=== PATIENT | female | born 1945 | race Hispanic/Latino ===

== ENCOUNTER 2018-06-11 14:38 | Day surgery (SDC) | payer MEDICARE ==
[2018-06-11] MEDS ORDERED: Epoetin (ESRD) 20,000 UNITS/ML SC SCH (15:00)
[2018-06-11 15:18] VITALS: BP 141/64; TEMP 97.9
== END 2018-06-11 19:09 | disposition home or self-care (01) ==
LOC: ONC/OP 14:38
PROVIDERS: ATTEND Internal Medicine Medical Oncology
DX: D50.8 Other iron deficiency anemias (principal); N18.3 Chronic kidney disease, stage 3 (moderate); D63.1 Anemia in chronic kidney disease; D46.Z Other myelodysplastic syndromes
CPT/HCPCS: 96372; Q4081

== ENCOUNTER 2018-06-18 14:15 | Day surgery (SDC) | payer MEDICARE ==
[2018-06-18] MEDS ORDERED: Epoetin (ESRD) 20,000 UNITS/ML SC SCH (14:45)
== END 2018-06-18 19:35 | disposition home or self-care (01) ==
LOC: ONC/OP 14:15
PROVIDERS: ATTEND Internal Medicine Medical Oncology
DX: D50.8 Other iron deficiency anemias (principal); N18.3 Chronic kidney disease, stage 3 (moderate); D63.1 Anemia in chronic kidney disease; D46.Z Other myelodysplastic syndromes
CPT/HCPCS: 96372; Q4081

== ENCOUNTER 2018-06-25 14:38 | Day surgery (SDC) | payer MEDICARE ==
[2018-06-25] MEDS ORDERED: Epoetin (ESRD) 20,000 UNITS/ML SC SCH (14:45)
[2018-06-25 15:02] VITALS: BP 135/65; TEMP 98
== END 2018-06-25 15:50 | disposition home or self-care (01) ==
LOC: ONC/OP 14:38
PROVIDERS: ATTEND Internal Medicine Medical Oncology
DX: D50.8 Other iron deficiency anemias (principal); N18.3 Chronic kidney disease, stage 3 (moderate); D63.1 Anemia in chronic kidney disease; D46.Z Other myelodysplastic syndromes
CPT/HCPCS: 96372; Q4081

== ENCOUNTER 2018-08-27 16:17 | Day surgery (SDC) | payer MEDICARE ==
[2018-08-27] MEDS ORDERED: Epoetin (NON-ESRD) 20,000 UNITS/ML ML SC SCH (16:30)
[2018-08-27 19:50] VITALS: BP 151/66; TEMP 98.5
== END 2018-08-27 19:50 | disposition home or self-care (01) ==
LOC: ONC/OP 16:17
PROVIDERS: ATTEND Nurse Practitioner Acute Care
DX: D50.8 Other iron deficiency anemias (principal); N18.3 Chronic kidney disease, stage 3 (moderate); D63.1 Anemia in chronic kidney disease; D46.Z Other myelodysplastic syndromes
CPT/HCPCS: 96372; J0885

== ENCOUNTER 2018-09-17 16:19 | Day surgery (SDC) | payer MEDICARE ==
[2018-09-17] MEDS ORDERED: Epoetin (NON-ESRD) 20,000 UNITS/ML ML IVP SCH (16:45)
[2018-09-17 16:47] VITALS: BP 178/75; TEMP 98.3
== END 2018-09-17 16:50 | disposition home or self-care (01) ==
LOC: ONC/OP 16:19
PROVIDERS: ATTEND Nurse Practitioner Acute Care
DX: D50.8 Other iron deficiency anemias (principal); N18.3 Chronic kidney disease, stage 3 (moderate); D63.1 Anemia in chronic kidney disease; D46.Z Other myelodysplastic syndromes
CPT/HCPCS: 96372; J0885

== ENCOUNTER 2018-10-15 16:00 | Day surgery (SDC) | payer MEDICARE ==
[2018-10-15] MEDS ORDERED: Epoetin (ESRD) 20,000 UNITS/ML SC SCH (16:30)
[2018-10-15 17:45] VITALS: BP 138/65; TEMP 98.8
== END 2018-10-15 19:26 | disposition home or self-care (01) ==
LOC: ONC/OP 16:00
PROVIDERS: ATTEND Internal Medicine Medical Oncology
DX: D50.8 Other iron deficiency anemias (principal); N18.3 Chronic kidney disease, stage 3 (moderate); D63.1 Anemia in chronic kidney disease; D46.Z Other myelodysplastic syndromes
CPT/HCPCS: 96372; Q4081

== ENCOUNTER 2018-11-05 15:51 | Day surgery (SDC) | payer MEDICARE ==
[2018-11-05] MEDS ORDERED: Epoetin (ESRD) 20,000 UNITS/ML SC SCH (16:15)
[2018-11-05 16:29] VITALS: BP 126/59; TEMP 98.2
== END 2018-11-05 16:29 | disposition home or self-care (01) ==
LOC: ONC/OP 15:51
PROVIDERS: ATTEND Internal Medicine Medical Oncology
DX: D50.8 Other iron deficiency anemias (principal); N18.3 Chronic kidney disease, stage 3 (moderate); D63.1 Anemia in chronic kidney disease; D46.Z Other myelodysplastic syndromes
CPT/HCPCS: 36415; 82728; 83540; 83550; 96372; Q4081

== ENCOUNTER 2018-11-26 15:45 | Day surgery (SDC) | payer MEDICARE ==
[2018-11-26] MEDS ORDERED: Epoetin (ESRD) 20,000 UNITS/ML SC SCH (16:45)
[2018-11-26 17:03] VITALS: BP 173/76; TEMP 97.9
== END 2018-11-26 17:03 | disposition home or self-care (01) ==
LOC: ONC/OP 15:45
PROVIDERS: ATTEND Internal Medicine Medical Oncology
DX: N18.3 Chronic kidney disease, stage 3 (moderate) (principal); D63.1 Anemia in chronic kidney disease; D50.8 Other iron deficiency anemias; D46.Z Other myelodysplastic syndromes
CPT/HCPCS: 96372; Q4081

== ENCOUNTER 2018-12-24 15:38 | Day surgery (SDC) | payer MEDICARE ==
[2018-12-24] MEDS ORDERED: Epoetin (ESRD) 20,000 UNITS/ML SC SCH (16:00)
[2018-12-24 16:05] VITALS: BP 162/69; TEMP 98.1
== END 2018-12-24 16:27 | disposition home or self-care (01) ==
LOC: ONC/OP 15:38
PROVIDERS: ATTEND Internal Medicine Medical Oncology
DX: D50.8 Other iron deficiency anemias (principal); N18.3 Chronic kidney disease, stage 3 (moderate); D63.1 Anemia in chronic kidney disease; D46.Z Other myelodysplastic syndromes
CPT/HCPCS: 96372; Q4081

== ENCOUNTER 2019-01-22 15:08 | Day surgery (SDC) | payer MEDICARE ==
[2019-01-22] MEDS ORDERED: Epoetin (ESRD) 20,000 UNITS/ML SC SCH (16:00)
== END 2019-01-22 15:31 | disposition home or self-care (01) ==
LOC: ONC/OP 15:08
PROVIDERS: ATTEND Internal Medicine Medical Oncology
DX: D50.8 Other iron deficiency anemias (principal); I12.9 Hypertensive chronic kidney disease with stage 1 through stage 4 chronic kidney disease, or unspecified chronic kidney disease; E11.22 Type 2 diabetes mellitus with diabetic chronic kidney disease; N18.3 Chronic kidney disease, stage 3 (moderate); D63.1 Anemia in chronic kidney disease; D46.Z Other myelodysplastic syndromes; E78.00 Pure hypercholesterolemia, unspecified; Z79.4 Long term (current) use of insulin; Z79.899 Other long term (current) drug therapy
CPT/HCPCS: 96372; Q4081

== ENCOUNTER 2019-03-04 15:47 | Day surgery (SDC) | payer MEDICARE ==
[2019-03-04] MEDS ORDERED: EPOETIN ALFA-EPBX (NON-ESRD) 10,000 UNIT/ML VIAL SC SCH (16:15)
[2019-03-04 16:21] VITALS: BP 144/63; TEMP 98.1
== END 2019-03-04 16:56 | disposition home or self-care (01) ==
LOC: ONC/OP 15:47
PROVIDERS: ATTEND Internal Medicine Medical Oncology
DX: D50.8 Other iron deficiency anemias (principal); N18.3 Chronic kidney disease, stage 3 (moderate); D63.1 Anemia in chronic kidney disease; D46.Z Other myelodysplastic syndromes
CPT/HCPCS: 96372; Q5106

== ENCOUNTER 2019-04-15 15:29 | Day surgery (SDC) | payer MEDICARE ==
[2019-04-15 15:46] VITALS: BP 137/63; TEMP 98
[2019-04-15] MEDS: Epoetin (ESRD) 10,000 UNITS/ML VIAL ONE ×3 (15:56→16:04)
[2019-04-15] MEDS ORDERED: EPOETIN ALFA-EPBX (ESRD) 10,000 UNIT/ML VIAL SC SCH (16:00)
[2019-04-15] MEDS ORDERED: Epoetin (ESRD) 10,000 UNITS/ML VIAL ONE (16:03)
== END 2019-04-15 16:04 | disposition home or self-care (01) ==
LOC: ONC/OP 15:29
PROVIDERS: ATTEND Internal Medicine Medical Oncology
DX: D50.8 Other iron deficiency anemias (principal); N18.3 Chronic kidney disease, stage 3 (moderate); D63.1 Anemia in chronic kidney disease; D46.Z Other myelodysplastic syndromes
CPT/HCPCS: 96372; Q4081

== ENCOUNTER 2019-05-06 15:55 | Day surgery (SDC) | payer MEDICARE ==
[2019-05-06] MEDS ORDERED: EPOETIN ALFA-EPBX (ESRD) 40,000 UNIT/ML VIAL ONE (16:00)
[2019-05-06] MEDS: EPOETIN ALFA-EPBX (ESRD) 10,000 UNIT/ML VIAL ONE (16:03)
[2019-05-06 16:06] VITALS: BP 125/60; TEMP 98.5
[2019-05-06] MEDS ORDERED: EPOETIN ALFA-EPBX (NON-ESRD) 10,000 UNIT/ML VIAL SC SCH (16:15)
== END 2019-05-06 16:11 | disposition home or self-care (01) ==
LOC: ONC/OP 15:55
PROVIDERS: ATTEND Internal Medicine Medical Oncology
DX: N18.3 Chronic kidney disease, stage 3 (moderate) (principal); D63.1 Anemia in chronic kidney disease; D50.8 Other iron deficiency anemias; D46.Z Other myelodysplastic syndromes
CPT/HCPCS: 96372; Q5105

== ENCOUNTER 2019-05-27 15:37 | Day surgery (SDC) | payer MEDICARE ==
[2019-05-27] MEDS ORDERED: EPOETIN ALFA-EPBX (ESRD) 10,000 UNIT/ML VIAL SC SCH (16:45)
== END 2019-05-27 17:01 | disposition home or self-care (01) ==
LOC: ONC/OP 15:37
PROVIDERS: ATTEND Internal Medicine Medical Oncology
DX: N18.3 Chronic kidney disease, stage 3 (moderate) (principal); D63.1 Anemia in chronic kidney disease; D50.8 Other iron deficiency anemias; D46.Z Other myelodysplastic syndromes
CPT/HCPCS: 96372; Q5105

== ENCOUNTER 2019-07-08 15:44 | Day surgery (SDC) | payer MEDICARE ==
[2019-07-08] MEDS: EPOETIN ALFA-EPBX (ESRD) 10,000 UNIT/ML VIAL ONE ×2 (15:54→15:55)
[2019-07-08 15:57] VITALS: BP 133/62; TEMP 97.9
== END 2019-07-08 16:03 | disposition home or self-care (01) ==
LOC: ONC/OP 15:44
PROVIDERS: ATTEND Internal Medicine Medical Oncology
DX: N18.3 Chronic kidney disease, stage 3 (moderate) (principal); D63.1 Anemia in chronic kidney disease; D46.Z Other myelodysplastic syndromes; D50.8 Other iron deficiency anemias
CPT/HCPCS: 96372; Q5105

== ENCOUNTER 2019-09-09 15:24 | Day surgery (SDC) | payer MEDICARE ==
[2019-09-09] MEDS ORDERED: EPOETIN ALFA-EPBX (ESRD) 10,000 UNIT/ML VIAL SC SCH (15:30)
[2019-09-09] MEDS: EPOETIN ALFA-EPBX (ESRD) 10,000 UNIT/ML VIAL ONE (15:34)
== END 2019-09-09 16:26 | disposition home or self-care (01) ==
LOC: ONC/OP 15:24
PROVIDERS: ATTEND Internal Medicine Medical Oncology
DX: D50.8 Other iron deficiency anemias (principal); N18.3 Chronic kidney disease, stage 3 (moderate); D63.1 Anemia in chronic kidney disease; D46.Z Other myelodysplastic syndromes
CPT/HCPCS: 96372; Q5105

== ENCOUNTER 2019-10-08 10:40 | Day surgery (SDC) | payer MEDICARE ==
[~2019-10-08 10:40] MED LIST: EPOETIN ALFA-EPBX (ESRD) 10,000 UNIT/ML VIAL SC SCH
[2019-10-08] MEDS: EPOETIN ALFA-EPBX (ESRD) 10,000 UNIT/ML VIAL ONE ×2 (10:45→10:46)
[2019-10-08 11:04] VITALS: BP 148/65; TEMP 98.9
== END 2019-10-08 11:05 | disposition home or self-care (01) ==
LOC: ONC/OP 10:40
PROVIDERS: ATTEND Internal Medicine Medical Oncology
DX: N18.3 Chronic kidney disease, stage 3 (moderate) (principal); D63.1 Anemia in chronic kidney disease; D50.8 Other iron deficiency anemias
CPT/HCPCS: 96372; Q5105

== ENCOUNTER 2019-12-03 11:39 | Day surgery (SDC) | payer MEDICARE ==
[2019-12-03] MEDS: EPOETIN ALFA-EPBX (ESRD) 10,000 UNIT/ML VIAL ONE ×2 (12:51→12:52)
[2019-12-03 14:46] VITALS: BP 165/72; TEMP 97.9
== END 2019-12-03 13:03 | disposition home or self-care (01) ==
LOC: ONC/OP 11:39
PROVIDERS: ATTEND Internal Medicine Medical Oncology
DX: D50.8 Other iron deficiency anemias (principal); N18.3 Chronic kidney disease, stage 3 (moderate); D63.1 Anemia in chronic kidney disease; D46.Z Other myelodysplastic syndromes
CPT/HCPCS: 36415; 82728; 83540; 83550; 96372; Q5105

== ENCOUNTER 2020-02-04 10:48 | Day surgery (SDC) | payer MEDICARE ==
[2020-02-04] MEDS ORDERED: EPOETIN ALFA-EPBX (ESRD) 10,000 UNIT/ML VIAL SC SCH (11:00)
[2020-02-04 11:10] VITALS: BP 144/66; TEMP 98.7
== END 2020-02-04 11:11 | disposition home or self-care (01) ==
LOC: ONC/OP 10:48
PROVIDERS: ATTEND Internal Medicine Medical Oncology
DX: N18.3 Chronic kidney disease, stage 3 (moderate) (principal); D63.1 Anemia in chronic kidney disease; D50.8 Other iron deficiency anemias; D46.Z Other myelodysplastic syndromes
CPT/HCPCS: 96372; Q5105

== ENCOUNTER 2020-04-07 11:21 | Day surgery (SDC) | payer MEDICARE ==
[2020-04-07 11:29] VITALS: BP 148/67; TEMP 98.2
[2020-04-07] MEDS: EPOETIN ALFA-EPBX (ESRD) 10,000 UNIT/ML VIAL ONE (11:33)
[2020-04-07] MEDS ORDERED: EPOETIN ALFA-EPBX (ESRD) 10,000 UNIT/ML VIAL SC SCH (11:45)
== END 2020-04-07 11:33 | disposition home or self-care (01) ==
LOC: ONC/OP 11:21
PROVIDERS: ATTEND Internal Medicine Medical Oncology
DX: N18.3 Chronic kidney disease, stage 3 (moderate) (principal); D63.1 Anemia in chronic kidney disease; D50.8 Other iron deficiency anemias; D46.Z Other myelodysplastic syndromes
CPT/HCPCS: 36415; 82728; 83540; 83550; 96372; Q5105

== ENCOUNTER 2020-06-02 10:30 | Day surgery (SDC) | payer MEDICARE ==
[2020-06-02 10:37] VITALS: BP 137/60
== END 2020-06-02 10:42 | disposition home or self-care (01) ==
LOC: ONC/OP 10:30
PROVIDERS: ATTEND Internal Medicine Medical Oncology
DX: D50.8 Other iron deficiency anemias (principal); N18.3 Chronic kidney disease, stage 3 (moderate); D63.1 Anemia in chronic kidney disease; D46.Z Other myelodysplastic syndromes
CPT/HCPCS: 96372; Q5105

== ENCOUNTER 2020-08-04 10:39 | Day surgery (SDC) | payer MEDICARE ==
[2020-08-04] MEDS ORDERED: EPOETIN ALFA-EPBX (ESRD) 10,000 UNIT/ML VIAL SC SCH (10:45)
[2020-08-04] MEDS ORDERED: EPOETIN ALFA-EPBX (ESRD) 10,000 UNIT/ML VIAL ONE (10:46)
[2020-08-04 10:49] VITALS: BP 145/64; TEMP 97.8
== END 2020-08-04 10:59 | disposition home or self-care (01) ==
LOC: ONC/OP 10:39
PROVIDERS: ATTEND Internal Medicine Medical Oncology
DX: N18.3 Chronic kidney disease, stage 3 (moderate) (principal); D63.1 Anemia in chronic kidney disease; D50.8 Other iron deficiency anemias; D46.Z Other myelodysplastic syndromes
CPT/HCPCS: 96372; Q5105